=== PATIENT | female | born 1990 | race American Indian/Alaskan Native ===

== ENCOUNTER 2016-08-06 22:32 | Emergency (ER) | payer SELFPAY ==
[2016-08-07 00:42] LABS: Bilirubin,Urine NEG (Negative); Blood,Urine NEG (Negative); Ketones,Urine NEG (Negative); Leukocyte Esterase,Urine MOD (Negative); Mucus,Urine FEW /HPF; Nitrite,Urine NEG (Negative); Protein,Urine <15 mg/dL mg/dL (Negative); Urobilinogen,Urine < 2.0 mg/dL (<2.0)
[2016-08-07] MEDS ORDERED: MOTRIN PO ONE (03:16)
--- NOTE | 2016-08-07 03:16 | Emergency Department Report ---
ED General Adult HPI - General Chief complaint: Skin Rash Stated complaint: ABD PAIN/RASH OVER BODY Time Seen by Provider: 08/07/16 03:11 Source: patient, RN notes reviewed Mode of arrival: Ambulatory Limitations: No Limitations - History of Present Illness Initial comments: This is a 25-year-old female. She is previously unknown to me. She does not have a primary care doctor. She denies chronic medical conditions. The patient presents to the ER complaining of 2 complaints. Since first complaint is rash. It is minimally pruritic. Started on the right arm, then went to her back, and is under her left breast. It is itchy. No fevers. No chills. No chest pain. No shortness of breath. No dysuria. No nausea or vomiting. No recent creams. No recent colognes. The patient's last complaint is abdominal pain. The abdominal pain is suprapubic and bilateral lower quadrants. It is aching. It has no exacerbating or relieving factors. -: Gradual Location: abdomen Consistency: intermittent Improves with: none Worsens with: none Associated Symptoms: rash - Related Data Previous Rx's Medication Instructions Recorded Last Taken Type Ibuprofen [Motrin] 600 mg PO Q8H PRN #30 tablet 08/07/16 Unknown Rx Mineral Oil/Hydrophil Petrolat 50 gm TP Q6HR #1 oint...g. 08/07/16 Unknown Rx [Aquaphor Healing Ointment] Ondansetron [Zofran Odt] 4 mg PO QID PRN #20 tab.rapdis 08/07/16 Unknown Rx Triamcinolone Acetonide 60 ml TP BID #1 lotion 08/07/16 Unknown Rx [Triamcinolone 0.1% LOTION] Allergies Allergy/AdvReac Type Severity Reaction Status Date / Time No Known Allergies Allergy Unverified 08/06/16 23:33 ED Review of Systems ROS: Stated complaint: ABD PAIN/RASH OVER BODY Other details as noted in HPI Constitutional: denies: fever Eyes: denies: vision change Respiratory: denies: cough, shortness of breath Cardiovascular: denies: chest pain Gastrointestinal: abdominal pain Genitourinary: denies: dysuria Skin: rash Neurological: denies: weakness Psychiatric: denies: anxiety ED Past Medical Hx - Past Medical History Previous Medical History?: No - Surgical History Past Surgical History?: No - Social History Smoking Status: Never Smoker Substance Use Type: None, Alcohol - Medications Home Medications: Home Medications Medication Instructions Recorded Confirmed Last Taken Type Ibuprofen [Motrin] 600 mg PO Q8H PRN #30 tablet 08/07/16 Unknown Rx Mineral Oil/Hydrophil Petrolat 50 gm TP Q6HR #1 oint...g. 08/07/16 Unknown Rx [Aquaphor Healing Ointment] Ondansetron [Zofran Odt] 4 mg PO QID PRN #20 tab.rapdis 08/07/16 Unknown Rx Triamcinolone Acetonide 60 ml TP BID #1 lotion 08/07/16 Unknown Rx [Triamcinolone 0.1% LOTION] ED Physical Exam - General Limitations: No Limitations General appearance: alert, in no apparent distress - Head Head exam: Present: atraumatic, normocephalic - Eye Eye exam: Present: normal appearance, EOMI. Absent: nystagmus - ENT ENT exam: Present: normal exam, normal orophraynx, mucous membranes moist, normal external ear exam - Neck Neck exam: Present: normal inspection, full ROM. Absent: tenderness, meningismus - Respiratory Respiratory exam: Present: normal lung sounds bilaterally. Absent: respiratory distress, wheezes, rales, rhonchi, stridor, chest wall tenderness, accessory muscle use, decreased breath sounds, prolonged expiratory - Cardiovascular Cardiovascular Exam: Present: regular rate, normal rhythm, normal heart sounds. Absent: bradycardia, tachycardia, irregular rhythm, systolic murmur, diastolic murmur, rubs, gallop - GI/Abdominal GI/Abdominal exam: Present: soft, normal bowel sounds. Absent: distended, tenderness, guarding, rebound, rigid - External exam: Present: normal external exam Speculum exam: Present: normal speculum exam. Absent: cervical discharge, vaginal bleeding, foreign body Bi-manual exam: Present: normal bi-manual exam, other (escorted by ARDEN Villa). Absent: cervical motion tendernes, adnexal tenderness, adnexal mass - Extremities Exam Extremities exam: Present: normal inspection, full ROM, normal capillary refill. Absent: tenderness, pedal edema, joint swelling, calf tenderness - Back Exam Back exam: Present: normal inspection, full ROM. Absent: tenderness, CVA tenderness (R), CVA tenderness (L), muscle spasm, paraspinal tenderness, vertebral tenderness - Neurological Exam Neurological exam: Present: alert, oriented X3, normal gait, other (Extraocular movements intact. Tongue midline. No facial droop. Facial sensation intact to light touch in the V1, V2, V3 distribution bilaterally. 5 and 5 strength in 4 extremities.. Sensation is intact to light touch in 4 extremities.). Absent : motor sensory deficit - Psychiatric Psychiatric exam: Present: normal affect, normal mood - Skin Skin exam: Present: warm, rash, other (underneath the left breast, on the bilateral upper extremities, and on the back, there are areas of macular changes which are on red, nontender, appear to be eczematous in nature.) ED Course Vital Signs 08/06/16 08/07/16 08/07/16 23:33 03:43 04:01 Temperature 99.1 F 100.1 F H Pulse Rate 100 H 93 H Respiratory 14 18 18 Rate Blood Pressure 134/87 Blood Pressure 105/80 [Left] O2 Sat by Pulse 99 100 Oximetry - Reevaluation(s) Reevaluation #1: 08/07/16 04:41 differential diagnosis: Pelvic inflammatory disease, appendicitis , urinary tract infection, eczema, pityriasis Assessment and plan: 25-year-old female with 2 complaints. The patient is nontender, with no rebound, guarding or peritoneal signs. Does have a low-grade temperature. SHe has benign gynecologic examination. I highly doubt intra-abdominal disease, however given low-grade temperature, we will obtain CT scan with IV contrast to exclude surgical condition. The rash is nonspecific, appears eczematous in nature, she can follow up with the primary care doctor for this or class a lineman for this. 08/07/16 06:02 Reevaluation #2: 08/07/16 06:02 laboratory studies reviewed and are unremarkable. The patient appears quite comfortable. Care is transferred to the oncoming physician, Dr. Malloy, will follow up on CT scan. Assuming CT scan negative, plan is to discharge with outpatient follow-up. ED Medical Decision Making - Lab Data Result diagrams: 08/07/16 04:24 08/07/16 04:24 Vital Signs 08/06/16 08/07/16 08/07/16 23:33 03:43 04:01 Temperature 99.1 F 100.1 F H Pulse Rate 100 H 93 H Respiratory 14 18 18 Rate Blood Pressure 134/87 Blood Pressure 105/80 [Left] O2 Sat by Pulse 99 100 Oximetry Critical care attestation.: If time is entered above; I have spent that time in minutes in the direct care of this critically ill patient, excluding procedure time. ED Disposition Clinical Impression: Rash, Lower abdominal pain Disposition: DC-01 TO HOME OR SELFCARE Is pt being admited?: No Does the pt Need Aspirin: No Condition: Good Instructions: Acute Rash (ED), Abdominal Pain (ED) Additional Instructions: Take the pain medication, nausea medication as directed. Take the Aquaphor ointment cream and applied after showering. Use the triamcinolone as directed. Avoid exposure to eyes and face. Follow up with the primary care doctor within the next week. Cultures was sent today, results will be available in the next 3-5 days. Have a primary care doctor contact the medical records department to obtain culture results. Return to the ER right away with new pain, worsening pain, migration of pain, fevers, chills, chest pain, shortness of breath, intractable nausea or vomiting, inability to tolerate liquid feeds. Prescriptions: Ibuprofen [Motrin] 600 mg PO Q8H PRN #30 tablet PRN Reason: Pain Mineral Oil/Hydrophil Petrolat [Aquaphor Healing Ointment] 50 gm TP Q6HR #1 oint...g. Ondansetron [Zofran Odt] 4 mg PO QID PRN #20 tab.rapdis PRN Reason: Nausea Triamcinolone Acetonide [Triamcinolone 0.1% LOTION] 60 ml TP BID #1 lotion Referrals: PRIMARY CARE, [Primary Care Provider] - 3-5 Days VIVIANA TREJO MD [Staff Physician] - 3-5 Days RICHAR MARTE MD [Staff Physician] - 3-5 Days
[2016-08-07 04:02] VITALS: BP 105/80
[2016-08-07] MEDS ORDERED: NACL 0.9% 1000 ML 1,000 ML IV ONE (04:07)
[2016-08-07] MEDS ORDERED: TYLENOL PO ONE (04:07)
[2016-08-07 05:06] LABS: Hematocrit 41.7 % (30.3-42.9); Hemoglobin 13.5 gm/dl (10.1-14.3); Mean Corpuscular HGB Conc 32 % (30-34); Mean Corpuscular Hemoglobin 27 pg (28-32); Mean Corpuscular Volume 84 fl (79-97); Platelet Count 321 K/mm3 (140-440); Red Blood Count 4.94 M/mm3 (3.65-5.03); Red Cell Distribution Width 13.4 % (13.2-15.2)
[2016-08-07 05:25] LABS: Anion Gap 17 mmol/L; BUN/Creatinine Ratio 21.66; Blood Urea Nitrogen 13 mg/dL (7-17); Calcium 9.4 mg/dL (8.4-10.2); Carbon Dioxide 23 mmol/L (22-30); Chloride 102.1 mmol/L (98-107); Glucose 89 mg/dL (65-100); Potassium 4.1 mmol/L (3.6-5.0); Sodium 138 mmol/L (137-145)
[2016-08-07] MEDS ORDERED: NACL ONE (05:59)
--- NOTE | 2016-08-07 06:52 | Cat Scan Report ---
FINAL REPORT EXAM: CT ABDOMEN PELVIS W CON HISTORY: lower abd pain TECHNIQUE: CT abdomen and pelvis performed. Images extend from diaphragm to pubic symphysis. 100 cc Omnipaque 350 IV was administered. Coronal and sagittal reformatted images were obtained. PRIORS: None. FINDINGS: There is a 2.4 cm mass in the right middle lobe. It contains a central calcification suggesting that it could be a large granuloma although its size is somewhat worrisome. I cannot exclude malignancy. The visualized liver, spleen, pancreas, adrenal glands and kidneys demonstrate no significant abnormalities. There is no abdominal aortic aneurysm. There is no evidence of intestinal obstruction. The appendix is normal. There is no free intraperitoneal air. There are no abnormal fluid collections seen. The bladder is unremarkable. There is no abnormal pelvic mass or fluid collections seen. IMPRESSION: 2.4 cm mass in the right middle lobe. It contains a central calcifications suggesting that it could be a large granuloma although its size is somewhat worrisome. I cannot exclude malignancy. If long-term stability cannot be established by comparison to old studies, recommend PET scan. Tissue diagnosis may be indicated. Also, CT of the chest suggested to evaluate for any additional abnormality. No acute abnormality seen in the abdomen or pelvis.
--- NOTE | 2016-08-07 07:38 | Emergency Department Report ---
Blank Doc - Documentation Documentation: CT of abdomen and pelvis shows no acute abdominal abnormality per the radiologist. There does appear to be a 2.4 cm mass in the right middle lobe containing a centralized calcification, most likely a large granuloma. Follow- up imaging is recommended. These results were discussed with the patient. Patient will be discharged home at this time to follow-up as an outpatient for further treatment.
== END 2016-08-07 07:57 | disposition home or self-care (01) ==
LOC: ED 22:32
DX: R10.30 Lower abdominal pain, unspecified (principal); R21 Rash and other nonspecific skin eruption
CPT/HCPCS: 36415; 74177; 80048; 81001; 81025; 85027; 87210; 87591; 96360; 99284; J7030; Q9967